=== PATIENT | male | born 1960 | race Caucasian/White ===

== ENCOUNTER → 2017-01-19 | Outpatient (CLI) | payer MEDICARE, OTHER ==
--- NOTE | 2017-01-19 13:24 | XR ---
EXAMINATION TYPE: XR thoracic spine complete DATE OF EXAM ORDERED: 01/19/2017 1:11 PM HISTORY: M54.6 thoracic pain. COMPARISON: None. FINDINGS: Vertebral body height and alignment are maintained. There is no abnormal motion of the spi ne in flexion or extension. This hypertrophic spondylosis in the mid dorsal spine as well as at the t horacolumbar junction and in the lower cervical spine. No fractures are seen. No bony destructive les ion is seen. Paraspinal soft tissues are normal. The pedicles are intact. IMPRESSION: 1. NO ACUTE OSSEOUS LESION. 2. MODERATE DEGENERATIVE CHANGE.
== END ==
LOC: RADXRMAIN 12:48
PROVIDERS: ATTEND Psychiatry & Neurology Pain Medicine
DX: M47.894 Other spondylosis, thoracic region (principal)
CPT/HCPCS: 72072

== ENCOUNTER → 2017-01-26 | Outpatient (CLI) | payer MEDICARE, OTHER ==
--- NOTE | 2017-01-26 22:38 | MR ---
EXAMINATION TYPE: MR thoracic spine wo con DATE OF EXAM: 01/26/2017 4:09 PM COMPARISON: Thoracic spine x-ray January 19, 2017. HISTORY: Tsp Pain per order. Mid back pain for 3 years per patient. TECHNIQUE: Multiplanar, multisequence imaging of thoracic spine is performed without contrast FINDINGS: Spinal cord shows normal course, caliber, and signal as it courses the thoracic spine. Wan tebral body heights and alignment are satisfactory. Disc space heights are maintained. There are smal l posterior disc herniations at T7-T8 and T8-T9 levels on sagittal image 8 mildly effacing anterior t hecal sac. Bone marrow signal intensity is preserved. Minimal multilevel anterior spurring is present . Review of the axial images confirm broad-based right paracentral disc protrusion effacing anterolate ral thecal sac causing some indenting of ventral surface of spinal cord on axial image 17 at T7-T8 le kely, bilateral neural foramina are patent. Axial images at T8-T9 level show broad-based posterior disc protrusion effacing anterior thecal sac o n axial image 14, bilateral neural foramina are patent. Axial images at T12-L1 level shows mild to moderate facet degenerative changes bilaterally on axial i mage 4, bilateral neural foramina are patent. Remainder thoracic levels are felt within normal limits. IMPRESSION: Posterior disc herniations T7-T8 and T8-T9 level are noted. Facet arthropathy thoracolumb ar junction is present.
== END | disposition home or self-care (01) ==
LOC: RADMRIMAIN 15:26
PROVIDERS: ATTEND Psychiatry & Neurology Pain Medicine
DX: M51.24 Other intervertebral disc displacement, thoracic region (principal); M46.95 Unspecified inflammatory spondylopathy, thoracolumbar region; Z88.6 Allergy status to analgesic agent
CPT/HCPCS: 72146

== ENCOUNTER → 2018-11-25 | Outpatient (CLI) | payer MEDICARE, OTHER ==
--- NOTE | 2018-11-25 13:18 | MR ---
EXAMINATION TYPE: MR shoulder RT wo con DATE OF EXAM: 11/25/2018 COMPARISON: None HISTORY: Rotator cuff tear or rupture, right shoulder TECHNIQUE: Multiplanar, multisequence imaging of the right shoulder is performed without contrast. FINDINGS: Exam is limited due to artifact. There is diffuse tendinopathy of the distal margin of the supraspinatus and infraspinatus tendons. There is a partial through thickness tear involving the ante rior fibers of the supraspinatus tendon extending a length of 9 mm transverse measurement of 9 mm No definite marrow edema identified. Arthropathy of the AC joint is noted. This does result in mild mass effect upon the supraspinatus mus bharat and musculotendinous junction. There is a small amount of fluid in the subacromial bursa. Glenohumeral ligaments are intact. Bony labrum grossly intact but limited in assessment. There is mil d atrophy of the visualized musculature. Bicipital tendon is well situated within the bicipital groove. Evaluation the intracapsular portion o f the tendon is limited by artifact but believed to be intact. IMPRESSION: Limited exam secondary to artifact. 1. Diffuse tendinopathy of the rotator cuff with a partial through thickness tear measuring 9 x 9 mm in the anterior fibers supraspinatus tendon with no retraction. 2. Impingement secondary to AC joint arthropathy.
== END | disposition home or self-care (01) ==
LOC: RADMRIMAIN 11:22
PROVIDERS: ATTEND Family Medicine
DX: M75.111 Incomplete rotator cuff tear or rupture of right shoulder, not specified as traumatic (principal); M19.011 Primary osteoarthritis, right shoulder; M75.81 Other shoulder lesions, right shoulder

== ENCOUNTER → 2020-11-05 | Outpatient (CLI) | payer MEDICARE ==
--- NOTE | 2020-11-07 21:08 | CT ---
EXAMINATION TYPE: CT CervThorLumbar spine wo con DATE OF EXAM: 11/05/2020 COMPARISON: Thoracic spine MRI January 26, 2017. Thoracic spine x-ray January 19, 2017. MRI cervical spin e June 13, 2016. MRI lumbar spine August 19, 2014. HISTORY: chronic upper to lower back pain/DDD, neck pain. CT DLP: 1929 mGycm Automated exposure control for dose reduction was used. FINDINGS: Cervical spine shows stable satisfactory alignment. Mild disc space narrowing C6-C7 level redemonstra yolanda. Mild spurring lower cervical levels redemonstrated. Vertebral body heights and disc space height s are otherwise maintained. Posterior spur disc complexes efface the anterior thecal sac at C5-C6 and C6-C7 levels, no significant change from prior MRI. Axial images demonstrate uncovertebral facet degenerative changes bilaterally at these levels contrib uting to mild neural foraminal narrowing at C5-C6 level and moderate to advanced right greater than l eft bilateral neural foraminal narrowing at C6-C7 level. Other levels felt within normal limits. Thoracic spine shows vertebral body heights and disc space heights to remain satisfactory. Alignment is satisfactory and stable. Multilevel small posterior disc herniations minimally efface the anterior thecal sac. Small posterior disc herniations T7-T8 and T8-T9 level redemonstrated mildly efface the anterior thecal sac. Moderate multilevel is redemonstrated. Anterior spurring midthoracic spine. There are 5 lumbar type vertebra identified. Lumbar spine redemonstrate satisfactory alignment. Verte bral body heights and disc space heights are maintained. No new large posterior disc herniations are present. Mild to moderate multilevel anterior spurring redemonstrated. Some mild/moderate facet arthr opathy at the L4-L5 and L5-S1 levels be demonstrated on axial images. There are mucous retention cysts and/or polyps in the inferior maxillary sinuses bilaterally. Coronar y artery calcification is identified. IMPRESSION: Some [id number] multilevel degenerative changes of the spine as detailed above. No significant interval degenerative progression from prior MRI studies.
== END | disposition home or self-care (01) ==
LOC: RADCTMAIN 13:24
PROVIDERS: ATTEND Psychiatry & Neurology Neurology
DX: M47.816 Spondylosis without myelopathy or radiculopathy, lumbar region (principal); M54.2 Cervicalgia; M54.6 Pain in thoracic spine
CPT/HCPCS: 72125; 72128; 72131

== ENCOUNTER → 2021-03-21 | Outpatient (CLI) | payer MEDICARE ==
[2021-03-21 15:13] LABS: Chol/HDL Ratio 5.12
== END | disposition home or self-care (01) ==
LOC: LABWHC1 09:07
PROVIDERS: ATTEND Internal Medicine Interventional Cardiology
DX: E78.5 Hyperlipidemia, unspecified (principal)
CPT/HCPCS: 36415; 80061; 82550; 84450; 84460

== ENCOUNTER → 2024-02-22 | Outpatient (CLI) | payer MEDICARE, OTHER ==
--- NOTE | 2024-02-22 20:04 | XR ---
EXAMINATION TYPE: XR lumbar spine 3V DATE OF EXAM: 02/22/2024 Comparison: None Clinical History: 63-year-old male M79.605 Pain left leg Findings: 5 lumbar type vertebral bodies. Hypertrophic facet arthropathy mid to lower lumbar spine. Trace grade 1 retrolisthesis L2-L3 and L4-L5. Vertebral body heights are preserved. Mild multilevel degenerative disc disease and anterior spondylosis. Some straightening of the normal lumbar lordosis. Impression: 1. Hypertrophic facet arthropathy mid to lower lumbar spine with trace degenerative grade 1 retrolist hesis L2-L3 and L4-L5. 2. Mild multilevel degenerative disc disease. 3. Straightening of the normal lumbar lordosis.
== END | disposition home or self-care (01) ==
LOC: RADXRMAIN 12:05
PROVIDERS: ATTEND Family Medicine
DX: M51.36 Other intervertebral disc degeneration, lumbar region (principal); M47.816 Spondylosis without myelopathy or radiculopathy, lumbar region
CPT/HCPCS: 72100

== ENCOUNTER → 2024-02-26 | Outpatient (CLI) | payer MEDICARE, OTHER ==
--- NOTE | 2024-02-26 19:14 | US ---
EXAMINATION TYPE: US venous doppler duplex LE LT DATE OF EXAM: 02/26/2024 4:39 PM COMPARISON: NONE CLINICAL INDICATION: Male, 63 years old with history of M79.605 PAIN IN LEFT LEG; Left leg pain SIDE PERFORMED: Left TECHNIQUE: The lower extremity deep venous system is examined utilizing real time linear array sonog brii with graded compression, doppler sonography and color-flow sonography. VESSELS IMAGED: Common Femoral Vein Deep Femoral Vein Greater Saphenous Vein * Femoral Vein Popliteal Vein Small Saphenous Vein * Proximal Calf Veins (* superficial vessels) Left Leg: Appears negative for DVT IMPRESSION: Grayscale, color doppler, spectral doppler imaging performed of the deep veins of the lo wer extremities. There is normal flow, compressibility, vascular waveforms.
== END | disposition home or self-care (01) ==
LOC: RADUSWWP 15:49
PROVIDERS: ATTEND Family Medicine
DX: M79.605 Pain in left leg (principal)

== ENCOUNTER → 2025-01-13 | Outpatient (CLI) | payer MEDICARE, OTHER ==
[2025-01-13 15:39] LABS: Hepatitis C IgG Antibody Nonreactive (Nonreactive)
[2025-01-13 15:57] LABS: ALT 21 U/L (10-49); AST 20 U/L (14-35); Albumin 4.6 g/dL (3.8-4.9); Albumin/Globulin Ratio 1.77 Ratio (1.60-3.17); Alkaline Phosphatase 83 U/L (41-126); BUN/Creat Ratio 15.14 Ratio (12.00-20.00); Blood Urea Nitrogen 10.6 mg/dL (9.0-27.0); Calcium 9.1 mg/dL (8.7-10.3); Carbon Dioxide 23.9 mmol/L (21.6-31.8); Chloride 101 mmol/L (96-109); Chol/HDL Ratio 4.71 Ratio; Globulin 2.6 g/dL (1.6-3.3); Glucose 159 mg/dL (70-110); LDL Cholesterol,Calculated 103.1 mg/dL (0.0-131.0); Magnesium 1.9 mg/dL (1.5-2.4); Potassium 3.9 mmol/L (3.5-5.5); Sodium 136 mmol/L (135-145); Total Bilirubin 1.3 mg/dL (0.3-1.2); Total Protein 7.2 g/dL (6.2-8.2)
== END | disposition home or self-care (01) ==
LOC: LABWHC1 09:20
PROVIDERS: ATTEND Family Medicine
DX: Z11.59 Encounter for screening for other viral diseases (principal); Z13.6 Encounter for screening for cardiovascular disorders; E11.610 Type 2 diabetes mellitus with diabetic neuropathic arthropathy; E78.5 Hyperlipidemia, unspecified; E55.9 Vitamin D deficiency, unspecified; N40.0 Benign prostatic hyperplasia without lower urinary tract symptoms
CPT/HCPCS: 36415; 80053; 80061; 82306; 82607; 82746; 83036; 83735; 84153; 84443; 86803; 87522